=== PATIENT | female | born 1945 | race Caucasian/White ===

== ENCOUNTER 2021-09-23 11:42 | Emergency (ER) | payer MEDICARE ==
[2021-09-23 12:35] LABS: #Eosinphils 0.2 10x3/uL (0.0-0.5); #Monocytes 1.2 10x3/uL (0.0-1.1); #Neutrophils 11.6 10x3/uL (1.5-8.4); %Basophils 0.2 % (0.0-2.0); %Eosinophils 0.9 % (0.0-6.0); %Lymphocytes 20.4 % (18.0-47.0); %Monocytes 7.6 % (0.0-10.0); %Neutrophils 70.4 % (40.0-75.0); Hemoglobin 13.4 g/dL (12.0-15.5); Mean Corpuscular HGB CONC 31.8 g/dL (32.0-36.0); Mean Corpuscular Hemoglobin 29.5 pg (27.0-33.0); Mean Corpuscular Volume 92.5 fl (81.6-98.3); Mean Platelet Volume 9.7 fl (7.4-10.4); Platelet Count 353 10x3/uL (150-450); RBC Distribution Width 13.1 % (11.5-14.5); Red Blood Cell (RBC) Count 4.55 10x6/uL (3.90-5.03); White Blood Cell (WBC) Count 16.4 10x3/uL (3.5-10.5)
[2021-09-23 12:58] LABS: ALT (SGPT) 20 U/L (8-55); AST (SGOT) 29 U/L (5-34); Albumin 4.3 g/dL (3.4-4.8); Alkaline Phosphatase 55 U/L (40-110); Anion Gap 17 mmol/L (10-20); BUN (Urea Nitrogen) 12 mg/dL (9.8-20.1); Bilirubin, Total 1.1 mg/dL (0.2-1.2); Calc. Creatinine Clearance 0 mL/min (70-130); Calcium 9.1 mg/dL (7.8-10.44); Carbon Dioxide 21 mmol/L (23-31); Chloride 108 mmol/L (98-107); Glucose 92 mg/dL (83-110); Potassium 4.7 mmol/L (3.5-5.1); Protein, Total 7.3 g/dL (5.8-8.1); Sodium 141 mmol/L (136-145)
== END 2021-09-23 14:04 | disposition home or self-care (01) ==
LOC: CSHERS 11:42
DX: J06.9 Acute upper respiratory infection, unspecified (principal)
CPT/HCPCS: 71045; 80053; 84484; 85025; 93005

== ENCOUNTER 2022-06-09 10:38 | Outpatient (CLI) | payer MEDICARE ==
[2022-06-09] MEDS ORDERED: Iopamidol 300 61% 100 ML VIAL FS ONE (15:28)
== END 2022-06-09 10:39 | disposition home or self-care (01) ==
LOC: CSHCT 10:38
PROVIDERS: ATTEND Internal Medicine Gastroenterology
DX: R10.11 Right upper quadrant pain (principal); R11.2 Nausea with vomiting, unspecified; D64.9 Anemia, unspecified; D72.829 Elevated white blood cell count, unspecified; K57.30 Diverticulosis of large intestine without perforation or abscess without bleeding
CPT/HCPCS: 74177; 82565; Q9967

== ENCOUNTER 2022-06-19 20:35 | Emergency (ER) | payer MEDICARE | END 2022-06-19 21:27 | disposition home or self-care (01) | LOC: CSHERS 20:35 | DX: B02.9 Zoster without complications (principal); K21.9 Gastro-esophageal reflux disease without esophagitis | CPT/HCPCS: 99282 ==

== ENCOUNTER 2023-06-19 19:18 | Emergency (ER) | payer MEDICARE ==
[~2023-06-19 19:18] MED LIST: Iopamidol 300 61% 100 ML VIAL FS ONE
[2023-06-19 20:33] LABS: Hematocrit 35.6 % (34.9-44.5); Hemoglobin 11.4 g/dL (12.0-15.5); Mean Corpuscular Volume 103.2 fl (81.6-98.3); Mean Platelet Volume 9.2 fl (7.4-10.4); Platelet Count 271 10x3/uL (150-450); RBC Distribution Width 17.1 % (11.5-14.5); Red Blood Cell (RBC) Count 3.45 10x6/uL (3.90-5.03); White Blood Cell (WBC) Count 26.6 10x3/uL (3.5-10.5)
[2023-06-19 20:38] LABS: ALT (SGPT) 11 U/L (8-55); AST (SGOT) 16 U/L (5-34); Albumin 4.2 g/dL (3.4-4.8); Alkaline Phosphatase 63 U/L (40-110); Anion Gap 13 mmol/L (10-20); BUN (Urea Nitrogen) 22 mg/dL (9.8-20.1); Bilirubin, Total 0.7 mg/dL (0.2-1.2); Calc. Creatinine Clearance 0 mL/min (70-130); Calcium 9.3 mg/dL (7.8-10.44); Carbon Dioxide 29 mmol/L (23-31); Chloride 103 mmol/L (98-107); Estimated GFR 79; Globulin 2.4 g/dL (2.4-3.5); Glucose 118 mg/dL (83-110); Protein, Total 6.6 g/dL (5.8-8.1); Sodium 140 mmol/L (136-145)
[2023-06-19 20:39] LABS: MDiff Complete? YES
[2023-06-19 21:07] LABS: Band 1 % (5-11); Lymphocytes 3 % (21-51); Monocytes 4 % (0-10); Neutrophil 92 % (42-75)
[2023-06-19 21:11] LABS: Clarity Clear (Clear)
[2023-06-19 21:11] LABS: Anisocytosis SLIGHT = 6-15 cells (100X) (0-5/hpf); Macrocytosis SLIGHT = 6-15 cells (100X) (0-5/hpf); Microcytosis SLIGHT = 6-15 cells (100X) (0-5/hpf); Platelet Adequacy Comment Appears Adequate
[2023-06-19 21:12] LABS: Bilirubin Neg (Negative); Blood, Urine 25 (Negative); Glucose, Urine (Dipstick) Normal (Negative); Ketone, Urine Negative (Negative); Leukocyte 25 (Negative); Nitrite Negative (Negative); Protein, Urine (Dipstick) Negative (Neg-Trace); Urobilinogen Normal mg/dL (Less than 2)
[2023-06-19 21:56] LABS: CAUTI Indications for Culture Dysuria,urgency,freq; RBC/HPF 0-3 HPF (0-3); WBC/HPF 0-3 HPF (0-3)
[2023-06-19 21:57] LABS: Bacteria/HPF None Seen HPF (None Seen); Squamous Epithelial 0-3 HPF (0-3); Urine Culture Reflex No No
[2023-06-19] MEDS ORDERED: Lorazepam 2 MG/ML VIAL ONE (22:39)
[2023-06-19] MEDS ORDERED: Lidocaine 2% 6 ML (Jelly) SYR TOP SCH (22:45)
[2023-06-19] MEDS ORDERED: Magnesium Citrate 300 ML BOT PO ONE (23:30)
== END 2023-06-19 23:13 | disposition home or self-care (01) ==
LOC: CSHERS 19:18
DX: K56.41 Fecal impaction (principal); K21.9 Gastro-esophageal reflux disease without esophagitis
CPT/HCPCS: 36415; 74177; 80053; 81001; 85025; 96374; J2060; Q9967

== ENCOUNTER 2023-12-15 08:36 | Outpatient (CLI) | payer MEDICARE, OTHER | END 2023-12-15 08:37 | disposition home or self-care (01) | LOC: CSHCT 08:36 | PROVIDERS: ATTEND Internal Medicine Hematology & Oncology | DX: C34.01 Malignant neoplasm of right main bronchus (principal); C77.0 Secondary and unspecified malignant neoplasm of lymph nodes of head, face and neck; R91.8 Other nonspecific abnormal finding of lung field | CPT/HCPCS: 70491; 71260; 82565 ==

== ENCOUNTER 2024-10-14 13:34 | Outpatient (CLI) | payer MEDICARE | END 2024-10-14 13:35 | disposition home or self-care (01) | LOC: CSHMAMMO 13:34 | PROVIDERS: ATTEND Internal Medicine Hematology & Oncology | DX: Z12.31 Encounter for screening mammogram for malignant neoplasm of breast (principal); Z80.3 Family history of malignant neoplasm of breast; Z85.89 Personal history of malignant neoplasm of other organs and systems | CPT/HCPCS: 77063; 77067 ==

== ENCOUNTER 2025-06-11 08:09 | Outpatient (CLI) | payer MEDICARE ==
[2025-06-11 10:09] LABS: Estimated GFR - POC 65.0
[2025-06-11] MEDS ORDERED: Iopamidol 300 61% 100 ML VIAL FS ONE (14:18)
== END 2025-06-11 08:10 | disposition home or self-care (01) ==
LOC: CSHCT 08:09
PROVIDERS: ATTEND Internal Medicine Hematology & Oncology
DX: C77.0 Secondary and unspecified malignant neoplasm of lymph nodes of head, face and neck (principal); C34.01 Malignant neoplasm of right main bronchus; Z79.899 Other long term (current) drug therapy; R91.8 Other nonspecific abnormal finding of lung field; R91.1 Solitary pulmonary nodule; K59.00 Constipation, unspecified; K57.30 Diverticulosis of large intestine without perforation or abscess without bleeding
CPT/HCPCS: 36415; 71260; 74160; 82565; Q9967